=== PATIENT | female | born 1960 | race Caucasian/White ===

== ENCOUNTER → 2017-10-07 | Outpatient (CLI) | payer OTHER ==
[2017-10-07 16:03] VITALS: BP 132/84; TEMP 98; BMI 42.7
--- NOTE | 2017-10-07 17:21 | P.HPOB ---
History of Present Illness H&P Date: 10/07/17 Chief Complaint: The patient is here for her routine gynecologic exam. This is a 57-year-old with an LMP of 2006. She is status post endometrial ablation in 2006. She is status post tubal ligation. The patient is here to establish with this office. She has been amenorrhea since her ablation. She has occasional hot flashes but these are not a problem. It has been about 8 years since her last pelvic exam. She is without gynecologic complaints. Review of Systems The patient has lost 22 pounds over the last year after starting her weight loss prescription. She denies respiratory, cardiac, or G.I. problems. Past Medical History Past Medical History: GERD/Reflux, Hyperlipidemia Additional Past Medical History / Comment(s): rena feet swelling, ANEMIA. 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 History of Any Multi-Drug Resistant Organisms: None Reported Past Surgical History: Ablation (Endometrial ablation 2006), Bladder Surgery ( Suspension 2006), Orthopedic Surgery, Tubal Ligation, Uterine Ablation Additional Past Surgical History / Comment(s): RT KNEE SCOPE. COLONOSCOPY 2016 (her 3rd), upper endoscopy 2016. Past Anesthesia/Blood Transfusion Reactions: No Reported Reaction Past Psychological History: No Psychological Hx Reported Smoking Status: Unknown if ever smoked Past Alcohol Use History: None Reported Past Drug Use History: None Reported Additional History: She has been since 1994 and works for [employer] - Past Family History Mother Family Medical History: Myocardial Infarction ([place]) Father Family Medical History: Cancer (lung) Sister(s) Family Medical History: Cancer (Breast) Medications and Allergies Home Medications Medication Instructions Recorded Confirmed Type Cholecalciferol [Vitamin D3] 5,000 unit PO DAILY@1200 11/07/14 01/01/16 History Rosuvastatin [Crestor] 20 mg PO DAILY 11/07/14 10/07/17 History L.acidoph,Paracasei, B.lactis 1 each PO DAILY 12/27/15 10/07/17 History [Probiotic] Naproxen Sodium [Aleve] 220 mg PO HS PRN 12/27/15 10/07/17 History Ranitidine HCl [Zantac] 150 mg PO DAILY 12/27/15 10/07/17 History Phentermine HCl 10/07/17 History Allergies Allergy/AdvReac Type Severity Reaction Status Date / Time Sulfa (Sulfonamide Allergy Rash/Hives Verified 10/07/17 15:55 Antibiotics) Exam - Vital Signs Vital signs: Vital Signs Temp BP 10/07/17 16:01 98.0 F 132/84 Intake and Output 10/07/17 10/07/17 10/07/17 06:59 14:59 22:59 Other: Weight 120.202 kg Height 5'6", BMI 42.8. This is a well-developed well-nourished heavyset white female who is alert and oriented times 3 in no acute distress. HEENT: Within normal limits. NECK: Supple without mass or thyromegaly. CHEST AND LUNGS: Clear to auscultation. HEART: Regular rate and rhythm. BREASTS: Are without mass or discharge. AXILLARY EXAM: Negative for adenopathy. BACK: Negative for CVA tenderness. ABDOMEN: Soft, obese, nontender, without palpable masses. PELVIC EXAM: Normal external genitalia with mild atrophy. Cervix and vagina appear normal with mild atrophy. There is no unusual discharge. There is no evidence of prolapse. The uterus is midposition, nongravid size and nontender. There are no palpable adnexal masses or tenderness. RECTAL EXAM: rectovaginal exam is negative for mass or tenderness and is negative for occult blood. EXTREMITIES: Nontender. IMPRESSION: 1. 57-year-old menopausal female with normal gynecologic exam. PLAN: 1. Pap smear was performed. 2. Self breast awareness was discussed. 3. Mammogram was recently done in June 2017 at [facility] according to the patient. She will repeat this in one year. 4. Osteoporosis prevention was discussed. 5. She will return in one year.
--- NOTE | 2017-10-15 14:10 | P.PN ---
Progress Note - Text Progress Note Date: 10/15/17 OUTPATIENT FOLLOW-UP NOTE TEST(S)/RESULTS: negative Pap smear from 10/07/2017. METHOD OF NOTIFICATION: the patient was notified by phone. PATIENT COMMENTS: DIAGNOSIS: normal Pap test DISCUSSION: PLAN: she is to return in one year.
== END | disposition home or self-care (01) ==
LOC: WWCWWP 15:14
PROVIDERS: ATTEND Obstetrics & Gynecology
DX: Z01.419 Encounter for gynecological examination (general) (routine) without abnormal findings (principal); Z53.9 Procedure and treatment not carried out, unspecified reason

== ENCOUNTER → 2018-02-18 | Outpatient (CLI) | payer OTHER ==
[2018-02-18 10:01] LABS: HCT 38.4 % (34.0-46.0); HGB 12.2 gm/dL (11.4-16.0); MCH 28.3 pg (25.0-35.0); MCHC 31.8 g/dL (31.0-37.0); Mean Platelet Volume 7.6; Platelet Count 229 k/uL (150-450); RBC 4.31 m/uL (3.80-5.40); WBC 6.6 k/uL (3.8-10.6)
[2018-02-18 10:29] LABS: ALT 18 U/L (9-52); AST 30 U/L (14-36); Albumin 4.2 g/dL (3.5-5.0); Alkaline Phosphatase 141 U/L (38-126); Anion Gap 8 mmol/L; Blood Urea Nitrogen 16 mg/dL (7-17); Calcium 9.5 mg/dL (8.4-10.2); Carbon Dioxide 29 mmol/L (22-30); Chloride 105 mmol/L (98-107); Cholesterol 168 mg/dL (<200); Glucose 100 mg/dL (74-99); HDL Cholesterol 66 mg/dL (40-60); LDL Cholesterol,Calculated 80 mg/dL (0-99); Sodium 142 mmol/L (137-145); Total Bilirubin 0.6 mg/dL (0.2-1.3); Total Protein 7.2 g/dL (6.3-8.2); Triglycerides 112 mg/dL (<150)
[2018-02-18 10:39] LABS: Potassium 4.6 mmol/L (3.5-5.1)
[2018-02-18 10:43] LABS: T4, Free (Free Thyroxine) 0.78 ng/dL (0.78-2.19)
[2018-02-18 20:15] LABS: Hemoglobin A1C 5.8 % (4.0-6.0)
== END ==
LOC: LABWHC1 08:57
PROVIDERS: ATTEND Family Medicine
DX: Z00.00 Encounter for general adult medical examination without abnormal findings (principal); D64.9 Anemia, unspecified; E78.5 Hyperlipidemia, unspecified; K21.0 Gastro-esophageal reflux disease with esophagitis
CPT/HCPCS: 36415; 80053; 80061; 83036; 84439; 84443; 85027

== ENCOUNTER → 2018-03-02 | Outpatient (CLI) | payer OTHER ==
--- NOTE | 2018-03-02 18:43 | XR ---
EXAMINATION TYPE: XR KUB DATE OF EXAM: 03/02/2018 COMPARISON: NONE HISTORY: Right-sided pain TECHNIQUE: 2 views supine FINDINGS: There is no sign of intestinal obstruction or pneumoperitoneum. Fecal pattern is normal. Th ere is no evidence of a mass. I see no definite pathologic calcifications over the kidneys. There is no evidence of bony destructive process. IMPRESSION: Nonacute abdomen.
== END | disposition home or self-care (01) ==
LOC: RADXRMAIN 17:33
PROVIDERS: ATTEND Family Medicine
DX: R10.84 Generalized abdominal pain (principal)
CPT/HCPCS: 74018

== ENCOUNTER → 2018-10-14 | Outpatient (CLI) | payer OTHER ==
[2018-10-14 08:53] VITALS: BP 150/83; PULSE 74; RESP 18; TEMP 98; BMI 43.0
--- NOTE | 2018-10-14 09:14 | P.HPOB ---
History of Present Illness H&P Date: 10/14/18 Chief Complaint: The patient is here for her routine gynecologic exam and ma mmogram. This is a 58-year-old within LMP of 2006. The patient has been immunoreactive censor endometrial ablation in 2006. She is status post tubal ligation. She denies any significant hot flashes. She is without gynecologic complaints. Review of Systems She is getting about 3 pounds over the past year. She denies respiratory, cardiac, or G.I. problems. Past Medical History Past Medical History: GERD/Reflux, Hyperlipidemia Additional Past Medical History / Comment(s): ANEMIA. 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 History of Any Multi-Drug Resistant Organisms: None Reported Past Surgical History: Bladder Surgery, Orthopedic Surgery, Tubal Ligation, Uterine Ablation Additional Past Surgical History / Comment(s): RT KNEE SCOPE. COLONOSCOPY 2016 (her 3rd, next 5 yrs), upper endoscopy 2016. Past Anesthesia/Blood Transfusion Reactions: No Reported Reaction Past Psychological History: No Psychological Hx Reported Smoking Status: Unknown if ever smoked Past Alcohol Use History: None Reported Past Drug Use History: None Reported - Past Family History Mother Family Medical History: Myocardial Infarction ([place]) Sister(s) Family Medical History: Cancer Father Family Medical History: Cancer Additional Family Medical History / Comment(s): lung Medications and Allergies Home Medications Medication Instructions Recorded Confirmed Type Cholecalciferol [Vitamin D3] 5,000 unit PO DAILY@1200 11/07/14 10/14/18 History Rosuvastatin [Crestor] 20 mg PO DAILY 11/07/14 10/14/18 History L.acidoph,Paracasei, B.lactis 1 each PO DAILY 12/27/15 10/14/18 History [Probiotic] Naproxen Sodium [Aleve] 220 mg PO HS PRN 12/27/15 10/14/18 History Ranitidine HCl [Zantac] 150 mg PO DAILY 12/27/15 10/14/18 History Phentermine HCl 10/07/17 History Allergies Allergy/AdvReac Type Severity Reaction Status Date / Time Sulfa (Sulfonamide Allergy Rash/Hives Verified 10/14/18 08:48 Antibiotics) Exam Vital Signs Temp Pulse Resp BP 10/14/18 08:50 98.0 F 74 18 150/83 Intake and Output 05/10/14/18 10/14/18 22:59 06:59 14:59 Other: Weight 121.109 kg Height 5'6", weight 267 pounds, BMI 43.1. This is a well-developed well-nourished heavyset white female who is alert and oriented times 3 in no acute distress. HEENT: Within normal limits. NECK: Supple without mass or thyromegaly. CHEST AND LUNGS: Clear to auscultation. HEART: Regular rate and rhythm. BREASTS: Are without mass or discharge. AXILLARY EXAM: Negative for adenopathy. BACK: Negative for CVA tenderness. ABDOMEN: Soft, obese, nontender, without palpable masses. PELVIC EXAM: Normal external genitalia with mild atrophy. Cervix and vagina appear normal. There is no unusual discharge. There is no evidence of prolapse. The uterus is midposition, nongravid size and nontender. There are no palpable adnexal masses or tenderness. RECTAL EXAM: rectovaginal exam is negative for mass or tenderness and is negative for occult blood. EXTREMITIES: Nontender. IMPRESSION: 1. 58-year-old menopausal female with normal gynecologic exam. PLAN: 1. Pap smear was deferred since she had a normal one on 10/07/2017. 2. Self breast awareness was discussed with the patient. 3. Screening mammogram will be done today. 4. Osteoporosis prevention was discussed. I have stressed the importance of adequate calcium, vitamin D and regular exercise. Recommended amounts of calcium and vitamin D were also discussed. 5. She was advised to return in one year for her annual well woman exam.
--- NOTE | 2018-10-14 10:40 | MM ---
Reason for exam: screening (asymptomatic). Last mammogram was performed 1 year and 3 months ago. History: Family history of breast cancer in sister at age 59. Physical Findings: A clinical breast exam by your physician is recommended on an annual basis and results should be correlated with mammographic findings. MG Screening Mammo w CAD Bilateral CC and MLO view(s) were taken. Prior study comparison: July 21, 2017, mammogram. May 02, 2016, mammogram. There are scattered fibroglandular densities. No suspicious abnormality. No significant changes when compared with prior studies. ASSESSMENT: Negative, BI-RAD 1 RECOMMENDATION: Routine screening mammogram of both breasts in 1 year.
== END ==
LOC: WWCWWP 08:27
PROVIDERS: ATTEND Obstetrics & Gynecology
DX: Z12.31 Encounter for screening mammogram for malignant neoplasm of breast (principal)
CPT/HCPCS: 77067

== ENCOUNTER → 2019-11-23 | Outpatient (CLI) | payer OTHER ==
--- NOTE | 2019-11-24 11:01 | MM ---
Reason for exam: screening (asymptomatic). Last mammogram was performed 1 year and 1 month ago. History: Patient is postmenopausal. Family history of breast cancer in sister at age 59. Physical Findings: A clinical breast exam by your physician is recommended on an annual basis and results should be correlated with mammographic findings. MG Screening Mammo w CAD Bilateral CC and MLO view(s) were taken. Prior study comparison: October 14, 2018, bilateral MG screening mammo w CAD. July 21, 2017, mammogram. The breast tissue is almost entirely fat. No significant changes when compared with prior studies. ASSESSMENT: Negative, BI-RAD 1 RECOMMENDATION: Routine screening mammogram of both breasts in 1 year.
== END | disposition home or self-care (01) ==
LOC: RADMAMWWP 15:54
PROVIDERS: ATTEND Family Medicine
DX: Z12.31 Encounter for screening mammogram for malignant neoplasm of breast (principal)
CPT/HCPCS: 77067

== ENCOUNTER → 2020-07-31 | Outpatient (CLI) | payer OTHER ==
[2020-07-31 08:56] LABS: HCT 35.6 % (34.0-46.0); HGB 11.6 gm/dL (11.4-16.0); MCHC 32.6 g/dL (31.0-37.0); Mean Platelet Volume 7.8; Platelet Count 222 k/uL (150-450); RDW 14.5 % (11.5-15.5); WBC 5.2 k/uL (3.8-10.6)
[2020-07-31 09:09] LABS: African American GFR (CKD) >90 (>60 ml/min/1.73 sqM); Anion Gap 11 mmol/L; Blood Urea Nitrogen 25 mg/dL (7-17); Carbon Dioxide 27 mmol/L (22-30); Chloride 102 mmol/L (98-107); Non-African American GFR(CKD) 87 (>60 ml/min/1.73 sqM); Potassium 4.4 mmol/L (3.5-5.1); Sodium 140 mmol/L (137-145)
== END | disposition home or self-care (01) ==
LOC: LABPAT 07:34
PROVIDERS: ATTEND Internal Medicine Cardiovascular Disease
DX: Z01.818 Encounter for other preprocedural examination (principal); R94.39 Abnormal result of other cardiovascular function study
CPT/HCPCS: 80051; 82565; 84520; 85027

== ENCOUNTER 2020-08-07 06:24 | Day surgery (SDC) | payer OTHER ==
[2020-08-02 12:01] VITALS: BMI 43.9
[~2020-08-07 06:24] MED LIST: ALPRAZolam 0.25 MG TAB PO PRN; ASPIRIN 325 MG TAB PO STA; HEPARIN SODIUM,PORCINE 10,000 UNIT in SODIUM CHLORIDE 0.9% 1,000 ML IRRIGATION PRN; HEPARIN SODIUM,PORCINE 2,500 UNIT in SODIUM CHLORIDE 0.9% 250 ML IRRIGATION PRN; NITROGLYCERIN SL TABS 0.4 MG TAB SUBLINGUAL PRN; SODIUM CHLORIDE 0.9% 1,000 ML in EMPTY BAG 1 BAG IV ONE
[2020-08-07] MEDS ORDERED: carvediloL 3.125 MG TAB PO STA (06:45)
[2020-08-07 07:02] VITALS: RESP 16; TEMP 97.7
[2020-08-07] MEDS ORDERED: SODIUM CHLORIDE 0.9% 1,000 ML IV ONE (07:02)
[2020-08-07 07:04] LABS: Glucose,Whole Blood 103 mg/dL (75-99)
[2020-08-07] MEDS ORDERED: VERAPAMIL 2.5 MG/ML 2 ML AMP ONE (07:38)
[2020-08-07] MEDS ORDERED: LIDOCAINE 1% INJ 10MG/ML (20 ML MDV) ONE (07:38)
[2020-08-07] MEDS ORDERED: HEPARIN SODIUM 1,000 UN/ML (10ML VL) ONE (07:39)
[2020-08-07] MEDS ORDERED: LIDOCAINE 1% INJ 10MG/ML (20 ML MDV) SQ ONE (07:49)
[2020-08-07] MEDS ORDERED: MIDAZOLAM 2 MG/2 ML VIAL IV ONE (07:49)
[2020-08-07] MEDS ORDERED: VERAPAMIL SYRINGE (5 MG/10 ML) INTRAARTER ONE (07:53)
[2020-08-07] MEDS ORDERED: IOPAMIDOL-370 125ML BTL INJ ONE (08:02)
[2020-08-07] MEDS ORDERED: RX INFO: IV CONTRAST WAS GIVEN 1 EACH MISC MISCELLANE PRN (08:16)
--- NOTE | 2020-08-07 08:23 | P.CARDCATH ---
Date of Procedure: 08/07/20 Preoperative Diagnosis: This is a 60-year-old female who was recently evaluated for preop clearance. Patient has history of hypertension, diabetes mellitus and hypercholesterolemia and obesity. A stress test was size to of partially reversible defect involving the anterior wall suggestive of ischemia, though breast attenuation cannot be excluded. Patient is advised to have a cardiac catheterization for definitive diagnosis Postoperative Diagnosis: Normal coronary arteries Procedure(s) Performed: Left heart cath without left ventriculography Description of Procedure: HISTORY: This is a 60-year-old female with history of hypertension, diabetes and hypercholesterolemia and obesity who was recently evaluated by stress test for preoperative clearance. She was found to have partially reversible defect involving the anteroapical wall. Ischemia could not be excluded though soft tissue attenuation was a possibility. Patient is advised to have a cardiac cath for definitive diagnosis CONSENT:I have discussed the risks, benefits and alternative therapies for the above-mentioned procedure and for both sedation/analgesia as well as necessary blood product administration, if indicated, as they pertain to this patient. The patient has indicated understanding and acceptance of the risks and procedures discussed. PROCEDURE: Patient was brought to the lab in a fasting state. Patient was given some IV sedation. The right groin is infiltrated with lidocaine and right femoral artery was entered using Seldinger technique. A 6-Czech catheter was left in place and selective coronary arteriography and left ventriculography was performed. Patient tolerated the procedure well. Femoral angiogram was performed and Angio-Seal was applied for hemostasis. No immediate complications were noted and patient was transferred to [facility] in a stable condition Conscious Sedation: Versed 1mg Fentanyl 0 g Duration 15minutes HEMODYNAMICS: The aortic pressure is about 145/85. Left ventricular end- diastolic pressure is 15. There is no gradient across the aortic valve SELECTIVE CORONARY ARTERIOGRAPHY: LEFT MAIN: Normal length and free of occlusive disease THE LEFT ANTERIOR DESCENDING CORONARY ARTERY:. Good caliber vessel wrapping around the apex free of any occlusive disease THE LEFT CIRCUMFLEX AND IS CORONARY ARTERY: Moderate caliber vessel with moderate OM branch. Free of occlusive disease THE RIGHT CORONARY ARTERY: Large caliber dominant vessel giving rise to PDA and PLV. Free of any occlusive disease LEFT VENTRICULOGRAPHY: Not performed FINAL IMPRESSION:. Normal coronary arteries. Elevated end-diastolic pressure PLAN: Continue current medical therapy. Add LY inhibitor PROGNOSIS: Good
[2020-08-07] MEDS ORDERED: SODIUM CHLORIDE 0.9% 1,000 ML IV SCH (08:30)
[2020-08-07 13:50] VITALS: BP 134/72; PULSE 78
== END 2020-08-07 13:17 | disposition home or self-care (01) ==
LOC: CATHCVL 06:24
PROVIDERS: ATTEND Internal Medicine Cardiovascular Disease
DX: R94.39 Abnormal result of other cardiovascular function study (principal); Z82.49 Family history of ischemic heart disease and other diseases of the circulatory system; E78.00 Pure hypercholesterolemia, unspecified; I10 Essential (primary) hypertension; E11.9 Type 2 diabetes mellitus without complications; E78.5 Hyperlipidemia, unspecified; Z88.2 Allergy status to sulfonamides; Z79.84 Long term (current) use of oral hypoglycemic drugs; Z79.899 Other long term (current) drug therapy
CPT/HCPCS: 93458; C1769 ×2; C1894; J2250; J2001; J1644; Q9967

== ENCOUNTER → 2020-09-12 | Outpatient (CLI) | payer OTHER ==
[2020-09-12 08:14] LABS: Basophils % (A) 1 %; Eosinophils # (A) 0.2 k/uL (0-0.7); Eosinophils % (A) 5 %; HCT 34.4 % (34.0-46.0); HGB 11.1 gm/dL (11.4-16.0); Lymphocytes # (A) 1.6 k/uL (1.0-4.8); Lymphocytes % (A) 31 %; MCH 28.9 pg (25.0-35.0); MCHC 32.3 g/dL (31.0-37.0); MCV 89.5 fL (80.0-100.0); Monocytes # (A) 0.3 k/uL (0-1.0); Monocytes % (A) 6 %; Neutrophils # (A) 2.9 k/uL (1.3-7.7); Neutrophils % (A) 57 %; Platelet Count 198 k/uL (150-450); RBC 3.85 m/uL (3.80-5.40); RDW 14.3 % (11.5-15.5)
== END | disposition home or self-care (01) ==
LOC: LABPAT 07:11
PROVIDERS: ATTEND Surgery Plastic and Reconstructive Surgery
DX: Z01.818 Encounter for other preprocedural examination (principal)
CPT/HCPCS: 36415; 84132; 85025

== ENCOUNTER 2020-09-14 10:43 | Day surgery (SDC) | payer OTHER ==
[2020-09-11 12:49] VITALS: BMI 45.6
--- NOTE | 2020-09-14 10:36 | P.GSHP ---
History of Present Illness H&P Date: 09/14/20 CHIEF COMPLAINT: GI bleed and melena HISTORY OF PRESENT ILLNESS: The patient is a 60-year-old female who presents with gastrointestinal bleeding and melena Upper and lower endoscopy were offered for further evaluation and management. PAST MEDICAL HISTORY: Please see list. PAST SURGICAL HISTORY: Please see list. MEDICATIONS: Please see list. ALLERGIES: Please see list. SOCIAL HISTORY: No illicit drug use FAMILY HISTORY: No reports of Crohn disease or ulcerative colitis. REVIEW OF ORGAN SYSTEMS: CONSTITUTIONAL: No reports of fevers or chills. PHYSICAL EXAM: VITAL SIGNS: Stable GENERAL: Well-developed pleasant in no acute distress. HEENT: No scleral icterus. Extraocular movements grossly intact. Moist buccal mucosa. NECK: Supple without lymphadenopathy. CHEST: Unlabored respirations. Equal bilateral excursions. CARDIOVASCULAR: Regular rate and rhythm. Distal 2+ pulses. ABDOMEN: Soft, nondistended. MUSCULOSKELETAL: No clubbing, cyanosis, or edema. ASSESSMENT: 1. Gastrointestinal bleeding with melena PLAN: 1. Recommend proceeding with an upper and lower endoscopy Past Medical History Past Medical History: Diabetes Mellitus, GERD/Reflux, Hyperlipidemia, Hypertension Additional Past Medical History / Comment(s): ANEMIA. hx frequent UTI's, large gallstone, "pre diabetic", History of Any Multi-Drug Resistant Organisms: None Reported Past Surgical History: Bladder Surgery, Heart Catheterization, Orthopedic Surgery, Tubal Ligation, Uterine Ablation Additional Past Surgical History / Comment(s): RT KNEE arthroscopy, heart cath 08/07/20 Past Anesthesia/Blood Transfusion Reactions: No Reported Reaction Smoking Status: Never smoker - Past Family History Mother Family Medical History: Myocardial Infarction ([place]) Sister(s) Family Medical History: Cancer Additional Family Medical History / Comment(s): breast cancer Father Family Medical History: Cancer Additional Family Medical History / Comment(s): lung Medications and Allergies Home Medications Medication Instructions Recorded Confirmed Type Cholecalciferol [Vitamin D3] 5,000 unit PO DAILY 11/07/14 09/11/20 History Rosuvastatin [Crestor] 20 mg PO DAILY 11/07/14 09/11/20 History Ferrous Sulfate [Feosol] 325 mg PO DAILY 08/02/20 09/11/20 History Furosemide [Lasix] 20 mg PO MOWEFR 08/02/20 09/11/20 History carvediloL [Coreg] 3.125 mg PO BID 08/02/20 09/11/20 History metFORMIN HCL [Glucophage] 850 mg PO BID 08/02/20 09/11/20 History lisinopriL [Zestril] 5 mg PO DAILY 09/11/20 09/11/20 History Allergies Allergy/AdvReac Type Severity Reaction Status Date / Time Sulfa (Sulfonamide Allergy Rash/Hives Verified 09/11/20 12:40 Antibiotics)
--- NOTE | 2020-09-14 10:38 | P.PCN ---
Date of Procedure: 09/14/20 Description of Procedure: PREOPERATIVE DIAGNOSIS: Gastrointestinal bleeding POSTOPERATIVE DIAGNOSIS: Acute gastritis with bleeding Acute gastric ulcer bleeding Diaphragmatic hiatal hernia Gastroesophageal reflux disease OPERATION: Esophagogastroduodenoscopy with biopsies along antrum. SURGEON: Fanta Ochoa MD ANESTHESIA: MAC. INDICATIONS: The patient is a 60-year-old female who presents with gastrointestinal bleeding with melena. Benefits and risks of the procedure were described. Informed c onsent was obtained. DESCRIPTION: The patient was brought into the endoscopy suite and laid in the left lateral decubitus position. An Olympus gastroscope was passed along the posterior oropharynx down to the distal esophagus where the squamocolumnar junction was encountered at 35 cm from the incisors. The stomach was entered and no bile reflux was found. Additional findings are listed below. Biopsies with cold forceps were obtained of the antrum. The first through third portion of the duodenum was examined and unremarkable. Retroflexion of the scope confirmed Hill grade 2 lower esophageal valve. The squamocolumnar junction demonstrated LA grade B erosive esophagitis. The stomach was desufflated. The patient tolerated the procedure well. FINDINGS: Squamocolumnar junction 35 cm from the incisors. Diaphragmatic hiatus at 37 cm. Hiatal hernia, 2 cm Hill grade 2 lower esophageal valve. LA grade B erosive esophagitis. No active duodenitis. Chronic gastritis with recent bleed Acute gastric ulcers along antrum with bleeding RECOMMENDATIONS: 1. Discontinue NSAIDs 2. Omeprazole and Carafate for 2-4 weeks
[~2020-09-14 10:43] MED LIST changes: +ACETAMINOPHEN TAB 500 MG TAB PO PRN; -ALPRAZolam 0.25 MG TAB PO PRN; -ASPIRIN 325 MG TAB PO STA; +DEXAMETHASONE SOD PHOSPHATE 4 MG/ML 1 ML VIAL IV ONE; +GABAPENTIN 300 MG CAP PO PRN; -HEPARIN SODIUM,PORCINE 10,000 UNIT in SODIUM CHLORIDE 0.9% 1,000 ML IRRIGATION PRN; -HEPARIN SODIUM,PORCINE 2,500 UNIT in SODIUM CHLORIDE 0.9% 250 ML IRRIGATION PRN; +HEPARIN SODIUM,PORCINE/PF 5,000 UNIT/0.5 ML SYRINGE SQ PRN; +HYDROmorphone 0.5 MG/0.5 ML SYRINGE IVP PRN; +INDOCYANINE GREEN 25 MG VIAL IV PRN; +LACTATED RINGERS 1,000 ML IV SCH; +MELOXICAM 7.5 MG TAB PO PRN; -NITROGLYCERIN SL TABS 0.4 MG TAB SUBLINGUAL PRN; +ONDANSETRON 4 MG/2 ML VIAL IVP ONE; +SCOPOLAMINE 1.5MG/72HR PATCH TRANSDERM PRN; -SODIUM CHLORIDE 0.9% 1,000 ML in EMPTY BAG 1 BAG IV ONE; +ceFAZolin 3 GM in SODIUM CHLORIDE 0.9% 100 ML IVPB PRN
--- NOTE | 2020-09-14 11:03 | P.GSHP ---
History of Present Illness H&P Date: 09/14/20 CHIEF COMPLAINT: Cholecystitis HISTORY OF PRESENT ILLNESS: The patient is a 60-year-old female who presents with history of epigastric including right upper quadrant abdominal pain. She underwent diagnostic studies for her gallbladder. Separately her clinical picture was consistent with cholecystitis. Now she presents for surgical intervention. PAST MEDICAL HISTORY: Please see list PAST SURGICAL HISTORY: Please see list MEDICATIONS: Please see list ALLERGIES: Please see list SOCIAL HISTORY: Please see list FAMILY HISTORY: Please see list REVIEW OF ORGAN SYSTEMS: CONSTITUTIONAL: No reports of fevers or chills. HEENT: Denies any troubles with the vision or hearing. SKIN: No skin cancer. PHYSICAL EXAM: VITAL SIGNS: Afebrile vital signs stable GENERAL: Well-developed pleasant in no acute distress. HEENT: No scleral icterus. Extraocular movements grossly intact. Moist buccal mucosa. NECK: Supple without lymphadenopathy. CHEST: Unlabored respirations. Equal bilateral excursions. CARDIOVASCULAR: Regular rate regular rhythm rhythm. Distal 2+ pulses. ABDOMEN: Soft, nondistended. Tender along the epigastrium and right upper quadrant. MUSCULOSKELETAL: No clubbing, cyanosis, or edema. NEURO: Cranial nerves II to XII within normal limits. No focal or lateralizing signs. PSYCH: Alert and oriented to person, place and time. SKIN: Well-perfused good skin turgor. ASSESSMENT: 1. Epigastric and right upper quadrant abdominal pain 2. Chronic cholecystitis 3. Symptomatic gallstones. PLAN: 1. Will need a robotic cholecystectomy possible open. Benefits and risks were described. 2. Heparin for DVT prophylaxis 5000 units. 3. Antibiotic prophylaxis. Past Medical History Past Medical History: Diabetes Mellitus, GERD/Reflux, Hyperlipidemia, Hypertension Additional Past Medical History / Comment(s): ANEMIA. hx frequent UTI's, large gallstone, "pre diabetic", History of Any Multi-Drug Resistant Organisms: None Reported Past Surgical History: Bladder Surgery, Heart Catheterization, Orthopedic Surgery, Tubal Ligation, Uterine Ablation Additional Past Surgical History / Comment(s): RT KNEE arthroscopy, heart cath 08/07/20 Past Anesthesia/Blood Transfusion Reactions: No Reported Reaction Smoking Status: Never smoker - Past Family History Mother Family Medical History: Myocardial Infarction ([place]) Sister(s) Family Medical History: Cancer Additional Family Medical History / Comment(s): breast cancer Father Family Medical History: Cancer Additional Family Medical History / Comment(s): lung Medications and Allergies Home Medications Medication Instructions Recorded Confirmed Type Cholecalciferol [Vitamin D3] 5,000 unit PO DAILY 11/07/14 09/11/20 History Rosuvastatin [Crestor] 20 mg PO DAILY 11/07/14 09/11/20 History Ferrous Sulfate [Feosol] 325 mg PO DAILY 08/02/20 09/11/20 History Furosemide [Lasix] 20 mg PO MOWEFR 08/02/20 09/11/20 History carvediloL [Coreg] 3.125 mg PO BID 08/02/20 09/11/20 History metFORMIN HCL [Glucophage] 850 mg PO BID 08/02/20 09/11/20 History lisinopriL [Zestril] 5 mg PO DAILY 09/11/20 09/11/20 History Allergies Allergy/AdvReac Type Severity Reaction Status Date / Time Sulfa (Sulfonamide Allergy Rash/Hives Verified 09/11/20 12:40 Antibiotics)
[2020-09-14 12:21] LABS: Glucose,Whole Blood 102 mg/dL (75-99)
[2020-09-14 12:49] LABS: ALT 12 U/L (4-34); AST 23 U/L (14-36); African American GFR (CKD) >90 (>60 ml/min/1.73 sqM); Albumin 4.3 g/dL (3.5-5.0); Alkaline Phosphatase 120 U/L (38-126); Anion Gap 9 mmol/L; Blood Urea Nitrogen 23 mg/dL (7-17); Calcium 9.7 mg/dL (8.4-10.2); Carbon Dioxide 26 mmol/L (22-30); Chloride 104 mmol/L (98-107); Glucose 106 mg/dL (74-99); Non-African American GFR(CKD) >90 (>60 ml/min/1.73 sqM); Sodium 139 mmol/L (137-145); Total Bilirubin 0.5 mg/dL (0.2-1.3)
[2020-09-14] MEDS ORDERED: MIDAZOLAM 2 MG/2 ML VIAL ONE (13:09)
[2020-09-14] MEDS ORDERED: INDOCYANINE GREEN 25 MG VIAL IV ONE (13:09)
[2020-09-14] MEDS ORDERED: SUCCINYLCHOLINE CHLORIDE 100 MG/5 ML SYR IV ONE (13:09)
[2020-09-14] MEDS ORDERED: fentaNYL (PF) 50 MCG/ML 2 ML AMP ONE (13:09)
[2020-09-14] MEDS ORDERED: ROCURONIUM 10 MG/ML (5 ML VIAL) IV ONE (13:09)
[2020-09-14] MEDS ORDERED: LIDOCAINE 1% INJ 10MG/ML (20 ML MDV) ONE (13:09)
[2020-09-14] MEDS ORDERED: GLYCOPYRROLATE 0.2 MG/ML 2 ML VIAL ONE (13:09)
[2020-09-14] MEDS ORDERED: NEOSTIGMINE 1 MG/ML 10 ML VIAL ONE (13:09)
[2020-09-14] MEDS ORDERED: PROPOFOL 10 MG/ML 20 ML VIAL IV ONE (13:09)
[2020-09-14] MEDS ORDERED: KETOROLAC 15 MG/ML 1 ML VIAL ONE (13:09)
[2020-09-14] MEDS ORDERED: LIDOCAINE 1% INJ 10MG/ML (20 ML MDV) SQ ONE ×2 (13:23→13:35)
[2020-09-14] MEDS ORDERED: LACTATED RINGERS 1,000 ML IV ONE ×2 (14:09→15:13)
[2020-09-14 14:26] VITALS: TEMP 97.4
[2020-09-14 14:37] LABS: Glucose,Whole Blood 157 mg/dL (75-99)
--- NOTE | 2020-09-14 14:42 | P.OP ---
Date of Procedure: 09/14/20 Description of Procedure: SURGEON: FANTA OCHOA MD PREOPERATIVE DIAGNOSES: 1. Symptomatic gallstones 2. Diabetes type 2, controlled 3. Hypertensive heart disease with congestive heart failure 4. Hyperlipidemia 5. Morbid obesity due to excess calories, BMI 45.6 POSTOPERATIVE DIAGNOSES: 1. Symptomatic gallstones 2. Diabetes type 2, controlled 3. Hypertensive heart disease with congestive heart failure 4. Hyperlipidemia 5. Morbid obesity due to excess calories, BMI 45.6 6. Peritoneal adhesions, right upper quadrant OPERATION: 1. Robotic-assisted da Karen Xi laparoscopic lysis of adhesions, right upper quadrant 2. Robotic-assisted da Karen Xi laparoscopic cholecystectomy, multiport with FIREFLY ESTIMATED BLOOD LOSS: 5 mL. SPECIMENS REMOVED: Gallbladder. COMPLICATIONS: None. OPERATIVE FINDINGS: 1. Peritoneal adhesions over gallbladder, pericholecystic with features of chronic cholecystitis 2. Large gallstones over 2 cm in size INDICATIONS: The patient is a 60-year-old female who presents with symptomatic gallstones and recent acute cholecystitis. Robotic assisted laparoscopic approach was described. Benefits and risks of the procedure including but not limited to bleeding, infection, injury to the biliary tree was described. Informed consent was obtained. DESCRIPTION OF PROCEDURE: Patient was brought to the operating room, placed in supine position. After general induction, the abdomen had been prepped and draped in standard sterile fashion. The robotic da Karen XI system was primed. After a timeout protocol was performed, the patient had been prepped and draped in standard sterile fashion. The patient was injected with indocyanine green. A 5 mm 0 degrees laparoscopic trocar entry was performed along the left upper quadrant. The abdomen insufflated to 15 mmHg pressure which was tolerated well. Diagnostic laparoscopy demonstrated no injury to bowel viscera or mesentery. The liver surface was unremarkable. Next, two 8 mm robotic ports were placed along the right upper abdomen. The camera 8-mm port was maintained along the epigastrium. Another 8 mm port was placed along the left upper abdominal wall after exchanging the 5 mm port. Please note that the ports were placed at least 10 to 15 cm away from the target anatomy of the gallbladder. The robot was docked along the left lateral abdomen. The patient was repositioned in reverse Trendelenburg position. Using a grasper for arm 3, a grasper for arm 4, including hook cautery for arm 1, the robotic system was docked and primed as described. Instruments were interchanged by the household personal assistant including hook cautery, Bovie cautery and clip appliers. I had sat at the console. The gallbladder was scarred with peritoneal adhesions. Lysis of adhesions was performed to free the gallbladder from the surrounding tissues. Next attention was brought to the infundibulum and cystic structures. The infundibulum and cystic duct were dissected free from surrounding tissues. The cystic duct was isolated. FIREFLY was used to identify the cystic artery and cystic structures. A critical view of safety was obtained. Large PLASTIC clips were used throughout the entire case. Using a clip concrete pointer, 2 clips were placed at the junction of the infundibulum and cystic duct. The cystic duct was divided between clips. Next, the cystic artery was similarly clipped and cauterized. Electro-Bovie cautery was used to remove the gallbladder from the hepatic fossa. Hemostasis was checked and found to be adequate. The robot was undocked. I re-scrubbed into the case. Using a 10 mm Endo Catch bag via the left upper quadrant incision, the specimen was removed from the abdominal cavity. All pneumoperitoneum instruments were evacuated from the abdominal cavity. The incisions were reapproximated using 4-0 Monocryl in an interrupted subcuticular fashion. Fascial defects were less than 8 mm in size. Please note along the trocar sites, local anesthetic was placed as a field block prior to insertion of all instruments. Liquid glue was applied to the skin. At the end of the procedure needle, sponge, and instrument count had been verified correct by the rn medical surgical. The patient was transferred to postanesthesia care unit in stable condition. Intraoperative films were shared with the patient's family. Plan - Discharge Summary Discharge Rx Participant: Yes New Discharge Prescriptions: New Ibuprofen [Motrin] 600 mg PO Q8HR PRN #30 tab PRN Reason: Pain Simethicone [Gas-X] 125 mg PO AC-TID PRN #20 capsule PRN Reason: Abdominal Distention Acetaminophen Tab [Tylenol Tab] 1,000 mg PO Q6HR PRN #30 tablet PRN Reason: Pain Continue Cholecalciferol [Vitamin D3 (25 Mcg = 1000 Iu)] 5,000 unit PO DAILY Rosuvastatin [Crestor] 20 mg PO DAILY carvediloL [Coreg] 3.125 mg PO BID Ferrous Sulfate [Iron (65 MG Elemental)] 325 mg PO DAILY Furosemide [Lasix] 20 mg PO MOWEFR metFORMIN HCL [Glucophage] 850 mg PO BID lisinopriL [Zestril] 5 mg PO DAILY Discharge Medication List Cholecalciferol [Vitamin D3 (25 Mcg = 1000 Iu)] 5,000 unit PO DAILY 11/07/14 [History] Rosuvastatin [Crestor] 20 mg PO DAILY 11/07/14 [History] Ferrous Sulfate [Iron (65 MG Elemental)] 325 mg PO DAILY 08/02/20 [History] Furosemide [Lasix] 20 mg PO MOWEFR 08/02/20 [History] carvediloL [Coreg] 3.125 mg PO BID 08/02/20 [History] metFORMIN HCL [Glucophage] 850 mg PO BID 08/02/20 [History] lisinopriL [Zestril] 5 mg PO DAILY 09/11/20 [History] Acetaminophen Tab [Tylenol Tab] 1,000 mg PO Q6HR PRN #30 tablet 09/14/20 [Rx] Ibuprofen [Motrin] 600 mg PO Q8HR PRN #30 tab 09/14/20 [Rx] Simethicone [Gas-X] 125 mg PO AC-TID PRN #20 capsule 09/14/20 [Rx] Follow up Appointment(s)/Referral(s): Fanta Ochoa MD [STAFF PHYSICIAN] - 09/19/20 Patient Instructions/Handouts: Low Fat Diet (DC), Laparoscopic Cholecystectomy (DC) Activity/Diet/Wound Care/Special Instructions: Recommend low-fat diet for the next 2 days. No lifting over 10 pounds in 2 weeks until September 28. May shower. No bath tub soaks for two weeks until September 28 Diet as tolerated. Use Tylenol, simethicone and ibuprofen or Aleve scheduled for the next 24-48 hours for best pain relief. Use ice along incisions for today to prevent swelling. Discharge Disposition: HOME SELF-CARE
[2020-09-14 16:07] VITALS: BP 135/82; PULSE 60; RESP 20
== END 2020-09-14 16:40 | disposition home or self-care (01) ==
LOC: OR 10:43
PROVIDERS: ATTEND Surgery Plastic and Reconstructive Surgery
DX: K80.10 Calculus of gallbladder with chronic cholecystitis without obstruction (principal); K66.0 Peritoneal adhesions (postprocedural) (postinfection); E78.5 Hyperlipidemia, unspecified; E11.9 Type 2 diabetes mellitus without complications; E78.00 Pure hypercholesterolemia, unspecified; Z82.49 Family history of ischemic heart disease and other diseases of the circulatory system; K21.9 Gastro-esophageal reflux disease without esophagitis; I11.0 Hypertensive heart disease with heart failure; I50.9 Heart failure, unspecified; D64.9 Anemia, unspecified; E66.01 Morbid (severe) obesity due to excess calories; Z68.42 Body mass index [BMI] 45.0-49.9, adult; Z87.440 Personal history of urinary (tract) infections; Z87.898 Personal history of other specified conditions; F10.21 Alcohol dependence, in remission; Z98.51 Tubal ligation status; Z98.890 Other specified postprocedural states; Z80.3 Family history of malignant neoplasm of breast; Z80.1 Family history of malignant neoplasm of trachea, bronchus and lung; Z79.84 Long term (current) use of oral hypoglycemic drugs; Z79.899 Other long term (current) drug therapy; Z88.2 Allergy status to sulfonamides
CPT/HCPCS: 47564; S2900; 80053; 88304

== ENCOUNTER 2020-09-14 20:22 | Emergency (ER) | payer OTHER ==
[2020-09-14] MEDS ORDERED: SODIUM CHLORIDE 0.9% 500 ML 500 ML IV STA (21:00)
[2020-09-14] MEDS ORDERED: methylPREDNISolone SOD SUCCI 125 MG/2 ML VIAL IV STA (21:00)
[2020-09-14] MEDS ORDERED: diphenhydrAMINE 50 MG/ML 1 ML VIAL IVP STA (21:00)
[2020-09-14] MEDS ORDERED: TRANEXAMIC ACID 1,000 MG in SODIUM CHLORIDE 0.9% 100 ML IVPB ONE (21:05)
--- NOTE | 2020-09-14 21:16 | ED ---
Allergic Reaction HPI - General Chief complaint: Allergic Reaction Stated complaint: Facial swelling, Time Seen by Provider: 09/14/20 20:50 Source: patient, RN notes reviewed Mode of arrival: ambulatory Limitations: no limitations - History of Present Illness Initial Comments: 60-year-old white female presents to the emergency room after being discharged today post laparoscopic cholecystectomy at 1730. at bedside states that at that time of discharge she noticed some right upper lip swelling but didn't think anything of it thinking it was related to the tube that was in her mouth. After getting home and the swelling to the top lip became progressively worse prompting them to come to the emergency room. Patient no acute distress, no re spiratory distress, alert and oriented 4. Patient denies any nausea, vomiting, diarrhea, chest pain, shortness of breath, or tongue swelling. No voice changes. No rashes. Patient does take lisinopril daily. Has history of diabetes, GERD, hypertension, and heart catheterization in July 2020. MD Complaint: allergic reaction -: hour(s) (3) Exposure: medication (takes lisinopril) Symptoms: lip swelling Severity: moderate Treatment Prior to Arrival: none Previous Allergy History: other (sulfa - hives) - Related Data Home Medications Medication Instructions Recorded Confirmed Cholecalciferol [Vitamin D3 (25 5,000 unit PO DAILY 11/07/14 09/11/20 Mcg = 1000 Iu)] Rosuvastatin [Crestor] 20 mg PO DAILY 11/07/14 09/11/20 Ferrous Sulfate [Iron (65 MG 325 mg PO DAILY 08/02/20 09/11/20 Elemental)] Furosemide [Lasix] 20 mg PO MOWEFR 08/02/20 09/11/20 carvediloL [Coreg] 3.125 mg PO BID 08/02/20 09/11/20 metFORMIN HCL [Glucophage] 850 mg PO BID 08/02/20 09/11/20 lisinopriL [Zestril] 5 mg PO DAILY 09/11/20 09/11/20 Previous Rx's Medication Instructions Recorded Acetaminophen Tab [Tylenol Tab] 1,000 mg PO Q6HR PRN #30 tablet 09/14/20 Ibuprofen [Motrin] 600 mg PO Q8HR PRN #30 tab 09/14/20 Simethicone [Gas-X] 125 mg PO AC-TID PRN #20 capsule 09/14/20 diphenhydrAMINE [Benadryl] 50 mg PO QID 3 Days #12 capsule 09/14/20 predniSONE 50 mg PO DAILY #3 tab 09/14/20 Allergies Allergy/AdvReac Type Severity Reaction Status Date / Time Sulfa (Sulfonamide Allergy Rash/Hives Verified 09/14/20 20:35 Antibiotics) Review of Systems ROS Statement: Those systems with pertinent positive or pertinent negative responses have been documented in the HPI. ROS Other: All systems not noted in ROS Statement are negative. Past Medical History Past Medical History: Diabetes Mellitus, GERD/Reflux, Hyperlipidemia, Hypertension Additional Past Medical History / Comment(s): ANEMIA. hx frequent UTI's, large gallstone, "pre diabetic", History of Any Multi-Drug Resistant Organisms: None Reported Past Surgical History: Bladder Surgery, Heart Catheterization, Orthopedic Surgery, Tubal Ligation, Uterine Ablation Additional Past Surgical History / Comment(s): RT KNEE arthroscopy, heart cath 08/07/20 Past Anesthesia/Blood Transfusion Reactions: No Reported Reaction Past Psychological History: No Psychological Hx Reported Smoking Status: Never smoker - Past Family History Mother Family Medical History: Myocardial Infarction (VT) Sister(s) Family Medical History: Cancer Additional Family Medical History / Comment(s): breast cancer Father Family Medical History: Cancer Additional Family Medical History / Comment(s): lung General Exam Limitations: no limitations General appearance: alert, in no apparent distress, obese Head exam: Present: atraumatic, normocephalic, normal inspection Eye exam: Present: normal appearance, PERRL, EOMI. Absent: scleral icterus, conjunctival injection, periorbital swelling, periorbital tenderness ENT exam: Present: normal oropharynx, mucous membranes moist, normal external ear exam, other (top lip swelling) Neck exam: Present: normal inspection, full ROM. Absent: tenderness, meningismus, lymphadenopathy, thyromegaly Respiratory exam: Present: normal lung sounds bilaterally. Absent: respiratory distress, wheezes, rales, rhonchi, stridor, chest wall tenderness, accessory muscle use, decreased breath sounds Cardiovascular Exam: Present: regular rate, normal rhythm, normal heart sounds. Absent: systolic murmur, diastolic murmur, rubs, gallop, clicks GI/Abdominal exam: Present: soft, normal bowel sounds, other (four surgical incisions with dermal glue to lower abdomen intact). Absent: distended, tenderness, guarding, rebound, rigid Extremities exam: Present: normal capillary refill Neurological exam: Present: alert, oriented X3 Psychiatric exam: Present: normal affect, normal mood Skin exam: Present: warm, dry, intact, normal color. Absent: rash, cyanosis, diaphoretic, erythema, urticaria, petechiae, pallor Course Vital Signs 09/14/20 20:31 Temperature 98.0 F Pulse Rate 68 Respiratory 18 Rate Blood Pressure 153/83 O2 Sat by Pulse 97 Oximetry Medical Decision Making - Medical Decision Making Patient observed in the emergency room for 2 hours with no worsening of symptoms. Patient given Solu-Medrol and Benadryl, swelling has not increased, no nausea, vomiting, no tongue swelling or airway concerns. Patient did not require epinephrine, is asymptomatic at this time with no wheezing or oxygen desaturations. Case discussed with Dr. Roper who was agreeable to discharging patient home with prednisone and Benadryl. Patient comfortable with this plan and at bedside states will monitor patient and will bring her back with worsening symptoms including throat tightening, chest pain, shortness of breath or lightheadedness. Disposition Clinical Impression: Angioedema due to angiotensin converting enzyme inhibitor (LY-I) Disposition: HOME SELF-CARE Condition: Good Instructions (If sedation given, give patient instructions): Angioedema (ED) Additional Instructions: STOP TAKING LISINOPRIL. Take prednisone and Benadryl as prescribed, return to the emergency room with throat tightening, tongue swelling, difficulty breathing or chest pain. Follow-up with the primary care doctor this week Prescriptions: diphenhydrAMINE [Benadryl] 50 mg PO QID 3 Days #12 capsule predniSONE 50 mg PO DAILY #3 tab Is patient prescribed a controlled substance at d/c from ED?: No Referrals: Clem Rios MD [Primary Care Provider] - 1-2 days Time of Disposition: 22:44
[2020-09-14 22:52] VITALS: BP 136/75; PULSE 65; RESP 16; TEMP 97.5
== END 2020-09-14 23:03 | disposition home or self-care (01) ==
LOC: EC 20:22
DX: T78.3XXA Angioneurotic edema, initial encounter (principal); T46.4X5A Adverse effect of angiotensin-converting-enzyme inhibitors, initial encounter; E11.9 Type 2 diabetes mellitus without complications; K21.9 Gastro-esophageal reflux disease without esophagitis; I10 Essential (primary) hypertension; E78.5 Hyperlipidemia, unspecified; Z79.52 Long term (current) use of systemic steroids; Z79.84 Long term (current) use of oral hypoglycemic drugs; Z79.1 Long term (current) use of non-steroidal anti-inflammatories (NSAID)
CPT/HCPCS: 99283; 96365; 96375 ×2; J1200; J2930

== ENCOUNTER → 2020-11-27 | Outpatient (CLI) | payer OTHER | END | disposition home or self-care (01) | DX: Z12.31 Encounter for screening mammogram for malignant neoplasm of breast (principal); Z80.3 Family history of malignant neoplasm of breast | CPT/HCPCS: 77063; 77067 ==

== ENCOUNTER → 2021-10-11 | Outpatient (CLI) | payer OTHER ==
[2021-10-11 11:09] LABS: Reticulocyte % 1.29 % (0.10-1.80)
[2021-10-11 11:33] LABS: % Iron Saturation 11.76 (12.00-45.00)
== END | disposition home or self-care (01) ==
LOC: LABWHC1 07:11
PROVIDERS: ATTEND Family Medicine
DX: D64.9 Anemia, unspecified (principal)
CPT/HCPCS: 36415; 82728; 83540; 83550; 85045

== ENCOUNTER → 2021-12-31 | Outpatient (CLI) | payer OTHER ==
--- NOTE | 2022-01-01 08:11 | MM ---
Reason for Exam: Screening (asymptomatic). Last mammogram was performed 1 year(s) and 1 month(s) ago. Patient History: Menarche at age 17. First Full-Term at age 22. Postmenopausal. Sister had breast cancer, age 59. Risk Values: Leatha 5 year model risk: 2.6%. NCI Lifetime model risk: 12.1%. Prior Study Comparison: 10/14/2018 Bilateral Screening Mammogram, [facility]. 11/23/2019 Bilateral Screening Mammogram, [facility]. 11/27/2020 Bilateral Screening Mammogram, [facility]. Tissue Density: The breast tissue is heterogeneously dense. This may lower the sensitivity of mammography. Findings: Analyzed By CAD. There is no suspicious group of microcalcifications or new suspicious mass in either breast. Overall Assessment: Negative, BI-RAD 1 Management: Screening Mammogram of both breasts in 1 year. A clinical breast exam by your physician is recommended on an annual basis and results should be correlated with mammographic findings. Electronically signed and approved by: Layton Schmitz M.D. Radiologis
== END | disposition home or self-care (01) ==
LOC: RADMAMWWP 07:12
PROVIDERS: ATTEND Internal Medicine
DX: Z12.31 Encounter for screening mammogram for malignant neoplasm of breast (principal)
CPT/HCPCS: 77063; 77067

== ENCOUNTER → 2023-01-01 | Outpatient (CLI) | payer OTHER ==
--- NOTE | 2023-01-02 17:37 | MM ---
Reason for Exam: Screening (asymptomatic). Last screening mammogram was performed 12 month(s) ago. Patient History: Menarche at age 17. First Full-Term at age 22. Postmenopausal. Sister had breast cancer, age 59. Risk Values: Leatha 5 year model risk: 2.7%. NCI Lifetime model risk: 11.8%. Prior Study Comparison: 11/23/2019 Bilateral Screening Mammogram, [facility]. 11/27/2020 Bilateral Screening Mammogram, [facility]. 12/31/2021 Bilateral MG 3D screening mammo w/cad, [facility]. Tissue Density: There are scattered fibroglandular densities. Findings: Analyzed By CAD. Pattern appears symmetrical and stable. No significant interval change is evident. No suspicious groups of microcalcifications, spiculated or lobular masses, architectural distortion or other secondary signs of malignancy are mammographically apparent. Overall Assessment: Benign, BI-RAD 2 Management: Screening Mammogram of both breasts in 1 year. A negative mammogram report should not preclude additional follow up of suspicious palpable abnormalities. Patient should continue monthly self breast exam. A clinical breast exam by your physician is recommended on an annual basis and results should be correlated with mammographic findings. Electronically signed and approved by: Neel Haque D.O. Radiologis
== END | disposition home or self-care (01) ==
LOC: RADMAMWWP 16:24
PROVIDERS: ATTEND Internal Medicine
DX: Z12.31 Encounter for screening mammogram for malignant neoplasm of breast (principal); Z78.0 Asymptomatic menopausal state; Z80.3 Family history of malignant neoplasm of breast
CPT/HCPCS: 77063; 77067

== ENCOUNTER → 2023-08-13 | Outpatient (CLI) | payer OTHER ==
--- NOTE | 2023-08-13 08:08 | XR ---
EXAMINATION TYPE: XR ribs RT w pa chest xray (5 views) DATE OF EXAM: 08/13/2023 COMPARISON: 11/21/2012 HISTORY: 63-year-old female R07.1, follow-up with right-sided pain. TECHNIQUE: Frontal and lateral views FINDINGS: Heart is borderline enlarged. Mild atherosclerotic arch calcifications. Large body habitus results in hazy mid and lower lung densities. No tracee consolidation, pneumothorax, or pleural effusion. No displaced right rib fracture is seen. IMPRESSION: 1. Borderline heart size. No acute cardiopulmonary process. 2. No displaced right rib fracture seen.
[2023-08-13 11:56] LABS: Basophils # (A) 0.03 X 10*3/uL (0.00-0.10); Basophils % (A) 0.5 %; Eosinophils % (A) 3.4 %; HCT 35.5 % (37.2-46.3); HGB 11.1 g/dL (12.0-15.0); Lymphocytes # (A) 1.53 X 10*3/uL (0.90-5.00); Lymphocytes % (A) 25.8 %; MCH 27.7 pg (27.0-32.0); MCHC 31.3 g/dL (32.0-37.0); MCV 88.5 FL (80.0-97.0); Monocytes # (A) 0.39 X 10*3/uL (0.20-1.00); Monocytes % (A) 6.6 %; NRBC Per 100 WBC 0 X 10*3/uL (0.00-0.01); Neutrophils # (A) 3.76 X 10*3/uL (1.80-7.70); Neutrophils % (A) 63.4 %; Platelet Count 232 X 10*3/uL (140-440); RBC 4.01 X 10*6/uL (4.10-5.20); RDW 14.7 % (11.5-14.5); WBC 5.93 X 10*3/uL (4.50-10.00)
[2023-08-13 13:22] LABS: % Iron Saturation 12.81 (12.00-45.00); ALT 15 U/L (8-44); AST 18 U/L (13-35); Albumin 4.4 g/dL (3.8-4.9); Albumin/Globulin Ratio 1.91 Ratio (1.60-3.17); Alkaline Phosphatase 125 U/L (41-126); BUN/Creat Ratio 33.71 Ratio (12.00-20.00); Blood Urea Nitrogen 23.6 mg/dL (9.0-27.0); Calcium 9.5 mg/dL (8.7-10.3); Carbon Dioxide 27.7 mmol/L (21.6-31.8); Chloride 107 mmol/L (96-109); Chol/HDL Ratio 2.75 Ratio; Ferritin 86.2 ng/mL (10.0-291.0); Globulin 2.3 g/dL (1.6-3.3); Glucose 113 mg/dL (70-110); Iron 47 UG/DL (50-170); LDL Cholesterol,Calculated 77.9 mg/dL (0.0-131.0); Potassium 4.4 mmol/L (3.5-5.5); Sodium 144 mmol/L (135-145); Total Bilirubin 0.4 mg/dL (0.3-1.2); Total Iron Binding Capacity 367 UG/DL (228-460); Total Protein 6.7 g/dL (6.2-8.2)
== END | disposition home or self-care (01) ==
LOC: LABWHC1 07:00
PROVIDERS: ATTEND Internal Medicine
DX: Z00.00 Encounter for general adult medical examination without abnormal findings (principal); D50.9 Iron deficiency anemia, unspecified; R07.81 Pleurodynia
CPT/HCPCS: 36415; 80053; 80061; 82728; 83540; 83550; 85025

== ENCOUNTER → 2024-01-20 | Outpatient (CLI) | payer OTHER ==
--- NOTE | 2024-01-28 08:05 | MM ---
Reason for Exam: Screening (asymptomatic). Last screening mammogram was performed 12 month(s) ago. Patient History: Menarche at age 17. First Full-Term at age 22. Postmenopausal. Sister had breast cancer, age 59. Risk Values: Leatha 5 year model risk: 2.7%. NCI Lifetime model risk: 11.4%. Prior Study Comparison: 11/27/2020 Bilateral Screening Mammogram, [facility]. 12/31/2021 Bilateral MG 3D screening mammo w/cad, [facility]. 01/01/2023 Bilateral MG 3D screening mammo w/cad, [facility]. Tissue Density: There are scattered areas of fibroglandular density. Findings: Analyzed By CAD. Right breast: There is no suspicious group of microcalcifications or new suspicious mass. Left breast: There is no suspicious group of microcalcifications or new suspicious mass. Overall Assessment: Negative, BI-RAD 1 Management: Screening Mammogram of both breasts in [address] [facility] will attempt to contact patient to return for supplemental views and ultrasound if indicated. Patient should continue monthly self-breast exams. A clinical breast exam by your physician is recommended on an annual basis. This exam should not preclude additional follow-up of suspicious palpable abnormalities. Note on Leatha scores and lifetime risk: 1. A Leatha score greater than 3% is considered moderate risk. If this is the case, consider specialist referral to assess eligibility for a risk reducing agent. 2. If overall lifetime risk for the development of breast cancer is 20% or higher, the patient may qualify for future screening with alternating mammogram and breast MRI. Electronically signed and approved by: Amol Almazan DO
== END | disposition home or self-care (01) ==
LOC: RADMAMWWP 16:05
PROVIDERS: ATTEND Obstetrics & Gynecology
DX: Z12.31 Encounter for screening mammogram for malignant neoplasm of breast
CPT/HCPCS: 77063; 77067

== ENCOUNTER → 2024-02-20 | Outpatient (CLI) | payer OTHER ==
[2024-02-20 11:01] LABS: ALT 14 U/L (8-44); AST 18 U/L (13-35); Albumin 4.2 g/dL (3.8-4.9); Albumin/Globulin Ratio 1.68 Ratio (1.60-3.17); Alkaline Phosphatase 145 U/L (41-126); BUN/Creat Ratio 28.57 Ratio (12.00-20.00); Calcium 9.3 mg/dL (8.7-10.3); Carbon Dioxide 27.9 mmol/L (21.6-31.8); Chloride 104 mmol/L (96-109); Chol/HDL Ratio 3.97 Ratio; Globulin 2.5 g/dL (1.6-3.3); Glucose 108 mg/dL (70-110); Potassium 4.4 mmol/L (3.5-5.5); Sodium 142 mmol/L (135-145); Total Bilirubin 0.4 mg/dL (0.3-1.2); Total Protein 6.7 g/dL (6.2-8.2)
[2024-02-20 11:10] LABS: Basophils # (A) 0.05 X 10*3/uL (0.00-0.10); Basophils % (A) 0.7 %; Eosinophils # (A) 0.25 X 10*3/uL (0.04-0.35); Eosinophils % (A) 3.7 %; HCT 35.2 % (37.2-46.3); HGB 10.8 g/dL (12.0-15.0); Lymphocytes # (A) 2.03 X 10*3/uL (0.90-5.00); Lymphocytes % (A) 29.8 %; MCHC 30.7 g/dL (32.0-37.0); Mean Platelet Volume 10.5 FL (9.5-12.2); Monocytes # (A) 0.39 X 10*3/uL (0.20-1.00); Monocytes % (A) 5.7 %; NRBC Per 100 WBC 0 X 10*3/uL (0.00-0.01); Neutrophils # (A) 4.08 X 10*3/uL (1.80-7.70); Neutrophils % (A) 59.8 %; Platelet Count 244 X 10*3/uL (140-440); RDW 14.8 % (11.5-14.5); WBC 6.82 X 10*3/uL (4.50-10.00)
[2024-02-20 11:41] LABS: % Iron Saturation 14.33 (12.00-45.00); Iron 49 UG/DL (50-170); Total Iron Binding Capacity 342 UG/DL (228-460)
== END | disposition home or self-care (01) ==
LOC: LABWHC1 06:57
PROVIDERS: ATTEND Internal Medicine
DX: Z11.59 Encounter for screening for other viral diseases (principal); I10 Essential (primary) hypertension; E78.5 Hyperlipidemia, unspecified; R73.03 Prediabetes; D50.9 Iron deficiency anemia, unspecified
CPT/HCPCS: 36415; 80053; 80061; 83036; 83540; 83550; 85025; 86803

== ENCOUNTER → 2024-08-25 | Outpatient (CLI) | payer OTHER ==
[2024-08-25 10:40] LABS: Basophils # (A) 0.05 X 10*3/uL (0.00-0.10); Basophils % (A) 0.8 %; Eosinophils % (A) 3.1 %; HCT 35.2 % (37.2-46.3); HGB 10.8 g/dL (12.0-15.0); Lymphocytes # (A) 1.89 X 10*3/uL (0.90-5.00); Lymphocytes % (A) 29.7 %; MCH 27.7 pg (27.0-32.0); MCHC 30.7 g/dL (32.0-37.0); MCV 90.3 FL (80.0-97.0); Mean Platelet Volume 10.8 FL (9.5-12.2); Monocytes # (A) 0.42 X 10*3/uL (0.20-1.00); Monocytes % (A) 6.6 %; NRBC Per 100 WBC 0 X 10*3/uL (0.00-0.01); Neutrophils % (A) 59.6 %; Platelet Count 232 X 10*3/uL (140-440); RDW 15.6 % (11.5-14.5); WBC 6.37 X 10*3/uL (4.50-10.00)
[2024-08-25 14:54] LABS: ALT 18 U/L (8-44); AST 21 U/L (13-35); Albumin 4.1 g/dL (3.8-4.9); Albumin/Globulin Ratio 1.78 Ratio (1.60-3.17); Alkaline Phosphatase 147 U/L (41-126); BUN/Creat Ratio 26.75 Ratio (12.00-20.00); Blood Urea Nitrogen 21.4 mg/dL (9.0-27.0); Calcium 9.7 mg/dL (8.7-10.3); Carbon Dioxide 25.4 mmol/L (21.6-31.8); Chloride 106 mmol/L (96-109); Chol/HDL Ratio 3.09 Ratio; Globulin 2.3 g/dL (1.6-3.3); Glucose 116 mg/dL (70-110); LDL Cholesterol,Calculated 84.1 mg/dL (0.0-131.0); Potassium 4.2 mmol/L (3.5-5.5); Sodium 145 mmol/L (135-145); Total Bilirubin 0.4 mg/dL (0.3-1.2); Total Protein 6.4 g/dL (6.2-8.2)
== END | disposition home or self-care (01) ==
LOC: LABWHC1 07:02
PROVIDERS: ATTEND Internal Medicine
DX: Z00.00 Encounter for general adult medical examination without abnormal findings (principal); R73.03 Prediabetes
CPT/HCPCS: 36415; 80053; 80061; 83036; 84443; 85025